=== PATIENT | female | born 1970 | race Caucasian/White ===

== ENCOUNTER 2017-02-19 10:48 | Inpatient (IN) | payer BC ==
[~2017-02-19] VITALS: Ht 170.2 cm; Wt 73.7 kg
[2017-02-19 11:50] LABS: CHLORIDE 107 mEq/L (99-109); POTASSIUM 3.5 mEq/L (3.7-5.4); SODIUM 139 mEq/L (136-147)
[2017-02-19 11:52] LABS: GLUCOSE 84 mg/dL (70-99)
[2017-02-19 11:53] LABS: ANION GAP 12 MEQ/L (2-14)
[2017-02-19 11:55] LABS: HEMATOCRIT 33.3 % (36.0-46.0); MCH 19.9 PG (29.0-34.0); MCHC 30.3 G/DL (30.0-36.0); MCV 65.7 FL (83-99); MEAN PLAT.VOLUME 10.4 uM^3 (9.5-12.4); PLATELET COUNT 358 K/uL (156-360); RBC DIS.WIDTH-CV 16.1 % (11.8-14.6); RED BLOOD COUNT 5.07 M/uL (3.80-5.20); WHITE BLOOD COUNT 6.3 K/uL (4.1-10.2)
[2017-02-19 11:56] LABS: GFR ESTIMATE (CALCULATED) > 59 mL/min/
[2017-02-19 11:57] LABS: UREA NITROGEN (BUN) 11 mg/dL (9-23)
[2017-02-19] MEDS ORDERED: TIROSINT75 MCG PO ×2 (17:42→17:53)
[2017-02-19] MEDS ORDERED: LAMICTAL200 MG PO (17:43)
[2017-02-19] MEDS ORDERED: OMEPRAZOLE40 M1 PO (17:43)
[2017-02-19] MEDS ORDERED: LEXAPRO10 MG PO (17:44)
[2017-02-19] MEDS ORDERED: PREVACID15 MG PO (17:45)
[2017-02-19] MEDS ORDERED: LAMICTAL25 MG PO (17:46)
[2017-02-19] MEDS ORDERED: REQUIP1 MG PO (17:48)
[2017-02-19] MEDS ORDERED: AMBIEN5 MG PO (17:48)
[2017-02-19 21:02] VITALS: BP 141/86
[2017-02-20 07:20] VITALS: BP 120/62
[2017-02-20 15:30] VITALS: BP 137/84
[2017-02-21 07:37] VITALS: BP 136/82
[2017-02-21 15:33] VITALS: BP 127/76
[2017-02-22 07:44] VITALS: BP 188/64
[2017-02-22] MEDS ORDERED: LAMOTRIGINE100 MG PO (09:44)
== END 2017-02-22 12:07 | disposition home or self-care (01) | DRG 885 ==
LOC: EME 10:48 → 1WEST 14:50 → EDOF 14:50 → ENRESERV 16:52 → 1WEST 17:14
PROVIDERS: Emergency Medicine
DX: F31.81 Bipolar II disorder (principal); R45.851 Suicidal ideations; E03.9 Hypothyroidism, unspecified; I10 Essential (primary) hypertension; E78.5 Hyperlipidemia, unspecified; K21.9 Gastro-esophageal reflux disease without esophagitis; M35.00 Sjogren syndrome, unspecified; M32.9 Systemic lupus erythematosus, unspecified; G47.00 Insomnia, unspecified; K44.9 Diaphragmatic hernia without obstruction or gangrene; L30.9 Dermatitis, unspecified; L71.9 Rosacea, unspecified; Z87.11 Personal history of peptic ulcer disease; Z88.0 Allergy status to penicillin
CPT/HCPCS: 80048; 84443; 85027; 90839; 99281; 99285

== ENCOUNTER → 2017-04-01 | Outpatient (CLI) | payer BC ==
[~2017-04-01] MED LIST: AMBIEN5 MG PO; LAMICTAL200 MG PO; LAMICTAL25 MG PO; LAMOTRIGINE100 MG PO; LEXAPRO10 MG PO; OMEPRAZOLE40 M1 PO; PREVACID15 MG PO; REQUIP1 MG PO; TIROSINT75 MCG PO
== END | disposition home or self-care (01) ==
LOC: RES 13:00
DX: R06.09 Other forms of dyspnea (principal)
CPT/HCPCS: 94070; 94726; 94729